=== PATIENT | female | born 1965 | race Caucasian/White ===

== ENCOUNTER 2021-03-25 20:06 | Emergency (ER) | payer OTHER, SELFPAY ==
[2021-03-25 20:07] VITALS: BP 116/80; PULSE 92; RESP 18; TEMP 38.1; O2SAT 96; BMI 19.8
--- NOTE | 2021-03-25 20:25 | ED.VIS.DYS ---
HPI History of Present Illness Chief Complaint: Cough Informant: patient Narrative Narrative: 55-year-old female presents the emergency department with cough and dyspnea with concerns for Covid. The patient states that she got sick about 8 days ago. She notes cough dyspnea with exertion nausea dry heaves body aches headache rhinorrhea. Patient did not know that she was running a fever. She denies any chronic medical conditions. She is a non-smoker. She reports that her is also ill. 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 She is unvaccinated against COVID-19 [facility] Medical History (Updated 03/25/21 @ 22:[address] Ramon Sandhu DO) Anxiety Kidney stone Home Medications albuterol sulfate [Ventolin HFA] 2 puff INHALATION Q4H PRN PRN #1 inhaler 03/25/21 [Rx Last Taken Unknown] alprazolam 0.25 mg PO DAILY 03/25/21 [History Last Taken Unknown] cholecalciferol (vitamin D3) [Vitamin D3] 25 mcg PO DAILY 03/25/21 [History Last Taken Unknown] citalopram 10 mg PO DAILY 03/25/21 [History Last Taken Unknown] dexamethasone 6 mg PO DAILY #14 tab 03/25/21 [Rx Last Taken Unknown] elderberry fruit [Elderberry] 200 mg PO DAILY 03/25/21 [History Last Taken Unknown] multivitamin 1 tab PO DAILY 03/25/21 [History Last Taken Unknown] ondansetron 4 mg PO Q8H PRN PRN #20 tab 03/25/21 [Rx Last Taken Unknown] Allergy/AdvReac Type Severity Reaction Status Date / Time buprenorphine [From Buprenex] Allergy Hives Verified 03/25/21 20:11 butorphanol [From Stadol] Allergy Hives Verified 03/25/21 20:11 hydromorphone [From Dilaudid] Allergy Hives Verified 03/25/21 20:11 morphine Allergy Hives Verified 03/25/21 20:10 Surgical History H/O parathyroidectomy Previous section Social History (Updated 03/25/21 @ 20:[address] Ramon Sandhu DO) Smoking Status: Never smoker substance use type: does not use ROS ROS ED Constitutional Constitutional ED: Reports chills and sweats; Denies weight loss Eyes Eyes: Denies change in vision or diplopia ENT ENT ED: Reports rhinorrhea and sore throat; Denies ear pain Cardiovascular Cardiovascular: Denies chest pain, orthopnea, palpitations or racing heartbeat Respiratory/Chest Respiratory/Chest: Reports cough, dyspnea and dyspnea on exertion; Denies orthopnea Gastrointestinal Gastrointestinal: Reports nausea and vomiting; Denies abdominal pain or diarrhea Genitourinary Genitourinary ED: Denies dysuria, hematuria or urinary frequency Musculoskeletal Musculoskeletal: Reports myalgias; Denies arthralgias Integumentary Denies abscess or rash Neurologic Neurologic: Reports headache(s); Denies weakness Psychiatric Psychiatric: Denies anxiety, depression, suicidal ideation or suicidal thoughts Endocrine Endocrinology: Denies polydipsia, polyphagia or polyuria Allergic/Immunologic Allergic/Immunologic ED: Denies mouth swelling, tongue swelling or urticaria EXAM Physical Exam Const Vital Signs: 03/25/21 20:07 03/25/21 21:10 03/25/21 22:29 Temperature 100.6 F H Temperature Source Temporal Pulse Rate 92 88 Respiratory Rate 18 16 Respiratory Effort Normal Respiratory Depth Normal Respiratory Pattern Normal Blood Pressure 116/80 112/76 Blood Pressure Mean 92 88 Pulse Ox 96 96 Oxygen Delivery Method Room Air Room Air Positive well nourished and well developed General Appearance ED: well developed HEENT Reports normocephalic, head/scalp atraumatic and moist mucous membranes Eyes PERRL and EOMs intact bilaterally Neck no lymphadenopathy, supple and no JVD Resp normal respiratory effort and clear to auscultation bilaterally Cardio regular rate, regular rhythm and no murmurs GI normal to inspection, nondistended, normoactive bowel sounds and non-tender Palpation: soft Back/Spine no CVA tenderness and normal ROM Extremity normal to inspection General Extremety ED: Negative for edema General Extremity: Negative for edema Neuro oriented x3 and CN's II-XII intact bilaterally Sensorium / Orientation: alert Motor Exam: strength 5/5 throughout Psych mental status grossly normal Mood & Affect: Negative for depressed or tearful Skin no rashes or lesions noted and no wounds MDM MDM MDM Narrative Medical decision making narrative: Basic blood work is negative. My interpretation of the chest x-ray is no acute process. Patient is not having any labored breathing. She is not requiring supplemental oxygen. I would consider her a well Covid patient. Should be discharged home with dexamethasone and albuterol and some Zofran. Return if worsening or concerns Lab Data Attestation: I reviewed the patient's lab results. Labs: Laboratory Results - last 24 hr 03/25/21 03/25/21 21:06 21:06 WBC 4.7 RBC 4.57 Hgb 14.1 Hct 42.4 MCV 92.8 MCH 30.9 MCHC 33.3 RDW Std Deviation 42.9 RDW Coeff of Sebastian 12.5 Plt Count 160 MPV 11.2 Immature Gran % (Auto) 0.400 Neut % (Auto) 64.5 Lymph % (Auto) 25.0 Radford % (Auto) 9.7 Eos % (Auto) 0.0 Baso % (Auto) 0.4 Absolute Neuts (auto) 3.0 Absolute Lymphs (auto) 1.18 Nucleated RBC % 0 Sodium 139 Potassium 3.7 Chloride 104 Carbon Dioxide 32.0 Anion Gap 3 L BUN 12 Creatinine 0.74 Estim Creat Clear Calc 69.70 Est GFR (MDRD) Af Amer 105 Est GFR (MDRD) Non-Af 87 BUN/Creatinine Ratio 16.2 Glucose 111 H Calcium 8.6 Radiography Diagnostic Testing: Radiology Impression Chest X-Ray 03/25/21 21:20 IMPRESSION: No acute process Electronically Signed: Igor Farooq MD at 22:11 EDT , Service support , Discharge Plan Triage Chief Complaint: Cough ED Provider: Ramon Sandhu Dx/Rx/DC Orders Clinical Impression: COVID-19 Instructions: Coronavirus Disease 2019 (COVID-19): Caring for Yourself or Others Prescriptions: New dexamethasone 6 MG tablet 6 mg PO DAILY Qty: 14 RF: 0 albuterol sulfate [Ventolin HFA] 1 INHALER inhaler 2 puff inhalation Q4H PRN PRN (Reason: Wheezing) Qty: 1 RF: 0 ondansetron [ondansetron] 4 MG tablet 4 mg PO Q8H PRN PRN (Reason: Nausea) Qty: 20 RF: 0 No Action multivitamin Tablet 1 tab PO DAILY RF: 0 citalopram 10 mg tablet 10 mg PO DAILY RF: 0 alprazolam 0.25 mg tablet 0.25 mg PO DAILY RF: 0 cholecalciferol (vitamin D3) [Vitamin D3] 25 mcg (1,000 unit) Capsule 25 mcg PO DAILY RF: 0 Elderberry 200 mg Capsule 200 mg PO DAILY RF: 0 Primary Care Provider: Qing Landrum Referrals: Qing Landrum PA [Primary Care Provider] -
[2021-03-25] MEDS: Acetaminophen 500 MG Tablet 1000 MG PO (20:54)
[2021-03-25 21:19] LABS: Absolute Lymphocyte Count 1.18 X10^3/uL (0.83-4.51); Basophil# 0.02 X10^3/uL; Basophil% 0.4 % (0-1); Hematocrit 42.4 % (37-47); Hemoglobin 14.1 g/dL (12.0-15.0); Lymphocyte # 1.18 X10^3/ul (0.83-4.51); Mean Corp Hgb Conc 33.3 g/dL (32-36); Mean Corpuscular Hgb 30.9 pg (27.0-32.0); Mean Corpuscular Volume 92.8 fL (81-99); Mean Platelet Vol. 11.2 fl (6.2-12.0); Monocyte# 0.46 X10^3/uL; Monocyte% 9.7 % (0-10); NRBC Flagged by Analyzer 0 % (0-5); Neutrophil # 3.04 X10^3/uL (2.7-7.7); Neutrophil % 64.5 % (47-70); Platelet Count 160 K/mm3 (150-450); RBC Distribution Width CV 12.5 % (11.6-14.6); RBC Distribution Width SD 42.9 fl (35.1-43.9); Red Blood Count 4.57 M/mm3 (4.2-5.4); White Blood Count 4.7 K/mm3 (4.4-11.0)
--- NOTE | 2021-03-25 21:20 | RAD_ITS ---
STUDY: X-RAY CHEST REASON FOR EXAM: Female, 55 years old. cough and sob x 1 week TECHNIQUE: Single AP portable view of the chest. COMPARISON: None. FINDINGS: The lungs are clear and expanded. There is no demonstrated pleural abnormality. Normal size heart. Normal mediastinum and gayle. Normal visualized pulmonary arteries. There is atherosclerotic calcification of the aortic arch with tortuosity. Normal visualized thoracic spine. Normal visualized ribs, clavicles, and shoulders. There is no demonstrated abnormality of the visualized soft tissue structures of the upper abdomen. RAD/Chest 1 View (Portable) IMPRESSION: No acute process Electronically Signed: Igor Farooq MD at 22:11 EDT , Service support ,
[2021-03-25 21:36] LABS: Anion Gap 3 (5-15); BUN 12 mg/dL (7-18); BUN/Creat Ratio 16.2 RATIO (10-20); Calcium,Total 8.6 mg/dL (8.5-10.1); Chloride 104 mmol/L (98-107); Creatinine, Serum 0.74 mg/dL (0.55-1.02); EST Glomerular Filtration Rate 87 mL/min (>60); Est Glom Filt Rate - Afr Amer 105 mL/min (>60); Glucose 111 mg/dL (74-106); Potassium 3.7 mmol/L (3.5-5.1); Sodium Level 139 mmol/L (136-145)
[2021-03-25 22:29] VITALS: BP 112/76; PULSE 88; RESP 16; O2SAT 96
[2021-03-25] MEDS: dexAMETHasone 4 MG Tablet 6 MG PO (22:59)
[2021-03-25 23:01] VITALS: BP 110/74; PULSE 76; RESP 18; TEMP 36.8; O2SAT 95
== END 2021-03-25 23:03 | disposition home or self-care (01) ==
LOC: ED 20:30
PROVIDERS: Emergency Provider Emergency Medicine; PCP Physician Assistant
DX: U07.1 COVID-19 (principal); Z79.899 Other long term (current) drug therapy
CPT/HCPCS: 71045; 80048; 85025; 87426; 87804; 99285; A4216

== ENCOUNTER 2023-10-23 17:00 | Outpatient (RCR) | payer OTHER, SELFPAY ==
--- NOTE | 2023-10-06 17:03 | HP.PTEVAL_ITS ---
Patient's Visit Information Visit Information Visit Information: SERA MANSFIELD is a 57 year old F referred to Physical Therapy by Dr. Kee Francois MD with a diagnosis of ADHESIVE CAPSULITIS OF R SHOULDER. Date of Evaluation: 10/06/23 Physical Therapist: Mihaela Watkins PT, Cert MDT Visit Plan Frequency: 2-5 TIMES A WK Duration: 4-6 Weeks Plan: CLARK UE ROM, STRETCHING AND STRENGTHENING. MH, US OR CP TREATMENTS NEEDED. CLARK SHLD JOINT MOBILIZATION. POSTURE CORRECTION/STRENGTHENING. 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 PLANNING TO GO BACK TO WORK MONDAY. Disability: NO Present symptoms: THE NERVE BLOCK IS LETTING UP. FEELING TINGLING IN R HAND. FEELING R NECK, SHLD AND ARM SORENESS AND TENDERNESS. FEELING A LITTLE SORENESS IN BICEP AREA ON THE LEFT. CLARK BICEP TINGLING - BETTER SINCE SURGERY. Present since: MAR 2023 Pain Scale: Worst - 5/10 Least - 2/10 Currently: 5/10 Commenced as a result of: NO APPARENT REASON Symptoms at onset: L SHLD BLADE PAIN AND TIGHTNESS Worse: REACHING Better: MOVING SLOWLY AND DELIBERATELY Disturbed sleep: YES Previous history/Previous treatment: CHIROPRACTIC EVERY 2-3 WKS REGULARYLY PRIOR TO THE ONSET OF THIS IN MAR 2023 SO CONTINUED WITH CHIROPRACTIC WITH US MARCY AND E-STIM THEN R SHLD STARTED IN JUN 2023. SAW PCP DR. BROOKS IN [place] FOR FOLLOW IN JUN AND DX WITH POLYMYALGIA RHEUMATICA. CONSULT WITH AGRICULTURAL EXTENSION EDUCATOR EARLIER THIS MONTH - REFERRED TO ORTHO. CONSULT WITH DR. FRANCOIS RIGHT AWAY, DX'D WITH CLARK FROZEN SHLD'S AND MANIPULATION SCHEDULED. REASON FOR DX UNKNOWN. This episode: CLARK SHLD MANIPULATIONS UNDER ANESTHESIA. NERVE BLOCK R. Dizziness: NO Tinnitus: NO Nausea: YES Shortness of Breath: YES - GETTING BETTER Difficulty Swollowing: NO Gait: NORMAL Accidents: NO Unexplained weight loss: NO Imaging: PATIENT RECALLS HAVING X-RAYS OF HANDS AND SHLD'S BUT NOT NECK SINCE ONSET OF L SHLD PAIN IN MAR 2023. MOST RECENT X-RAYS WERE FROM [facility]. PATIENT IS UNSURE OF RESULTS OTHER THAN BEING TOLD THERE WERE NO SIGNS OF ARTHRITIS. PMH/Recent major surgery: ANXIETY, PARATHYROIDECTOMY 1989. H/O KIDNEY STONES. OTHER: PRIOR TO ONSET IN MAR 2023 PATIENT REPORTS UNLIMITED UE FUNCTION. PRIOR TO SURGERY PATIENT REPORTS DIFFICULTY HOOKING HER BRA, REACHING UP TO GET THINGS OUT OF THE CUPBOARD, PAINTING, GETTING COAT ON, REACHING UP TO WRITE ON SMART BOARD AT WORK, DOING HAIR, HANGING CLOTHES UP, ETC. PATIENT REPORTS TINGLING IN CLARK BICEPS PRIOR TO SURGERY. Objective Objective: Sitting Posture/Standing Posture: POOR. SLOUCHED. FH. RSH'S. R SHL LEVEL LOWER THAN L. NO TORTICOLLIS. Active Correction of posture: BETTER. ABLE TO MOSTLY CORRECT BUT DOES NOT MAINTAIN. Other Observations: INDEP GAIT AND TRANSFERS. GOOD HISTORIAN. PLEASANT AND COOPERATIVE TO WORK WITH. Sensory deficit: CLARK UE LIGHT TOUCH SENSATION GROSSLY INTACT AND SYMMETRICAL ROM deficit: AROM IN STANDING: R SHLD FLEX 138, L 140. EXT R 43, L 52. ABD R 92, L 76. SUPINE IR R 32, L 26. ER R 28, L 36 SUPINE PROM: R SHLD FLEX 168, L 145. ABD R 148, L 130. IR R 63, L 62. ER R 71, L 71. (ROTATION MEASURED WITH 80 DEG ABD). Motor deficit: R SHLD 3-/5, ELBOW 4-/5, HAND 4/5. L SHLD 2+/5, ELBOW 3+/5, HAND 4/5. Reflexes: UNABLE TO ELICIT CLARK UE DTR'S. Cervical Mvmt Loss: Flex: NIL Pro: NIL Ext: MOD Ret: EDITH RSB: MOD LSB: MOD R Rot: MIN L Rot: MIN PATIENT HAS TIGHTNESS WITH CERVICAL ROM TESTING BUT DENIES PAIN WITH TESTING. Postural strength: FAIR Palpation: MILD CLARK SHLD TENDERNESS L>R. SHE HAS GENERALIZED TENDERNESS IN THE UPPER TRAP AND SHLD REGIONS. TREATMENT: CLARK SHLD JOINT MOBILIZATION, A/AA/PROM ALL PLANES. HEP INSTRUCTION FOR A/AA/PROM ALL PLANES AND HEAT AND COLD NEEDED FOR PAIN AND inflammation CONTROL. PATIENT TOLERATED ALL INTERVENTIONS WELL AND HAD NEAR FULL ROM OF CLARK UE'S ALL PLANES BY END OF SESSION. SHE DEMONSTRATED AND COMMUNICATED A GOOD UNDERSANDING OF ALL INSTRUCTIONS AFTER GIVEN. Balance/Special Test Scores Quick DASH Score: 45.0000 Goals Goal 1:: DECREASE C/O CLARK SHLD PAIN AND R NECK PAIN BY AT LEAST 80% TO EASE ADL AND SLEEP FUNCTION. Goal Time Frame: 4-6 Weeks Goal 2:: RESTORE FULL ROM OF CLARK UE'S TO HELP PATIENT RETURN TO PLOF Goal Time Frame: 4-6 Weeks Goal 3:: RESTORE FULL STRENGTH AND FUNCTION OF CLARK UE'S TO ASSIST PATIENT IN RETURN TO PLOF Goal Time Frame: 4-6 Weeks Goal 4:: INDEP HEP Goal Time Frame: 4-6 Weeks Rehabilitation Potential Physical Therapy Diagnosis: THIS PATIENT PRESENTS TO PT S/P CLARK SHLD MANIPULATION UNDER ANESTHESIA YESTERDAY 10/05/23. SHE PRESENTS WITH PAIN AND HYPOMOBILITY OF CLARK SHLD'S. Rehabilitation Potential: Excellent Anticipated Interventions Patient/Client Instruction: Educate patient on: Condition, Plan of Care and Risk Factors For the Purpose of:: To improve self management Therapeutic Exercise to Include: Strength training, Body mechanics, Postural training, Flexibilty training, Neuromotor development, Passive ROM, Active ROM and Scapular Strength/Stabilization For the Purpose of:: To decrease pain, To increase ROM, To improve muscle performance and motor function, To increase tolerance to activity/condition/position, To improve ability of physical actions for home/community/work/leisure, To decrease soft tissue restriction and To increase flexibility/ROM Manual Therapy Techniques to Include: Mobilization For the Purpose of:: To decrease pain and To increase ROM TENS: Yes IF ES: Yes Cryotherapy (ice pack, ice massage): Yes Thermo therapy (hot pack): Yes Ultrasound (thermal/non thermal): Yes For the Purpose of:: To decrease pain, To decrease swelling/inflammation and To improve nutrient delivery to tissue Text: Thank you for the opportunity to evaluate your patient. For Medicare and Medicare HMO plans, please review the plan of care and approve it. It will need to be FAXED BACK to us at [phone] for Medicare purposes. For Medicare only, by signing this I certify the plan of care. Please let me know if there are questions or concerns regarding this plan of care. Physician Nelly alonzo: Date:
--- NOTE | 2023-10-24 08:51 | HP.PTDCSUM ---
Discharge Summary D/C summary: It has been my pleasure to treat SERA MANSFIELD referred by Dr. Kee Gavin MD, with the diagnosis of ADHESIVE CAPSULITIS OF R SHOULDER for a total of 10 visit(s). Discharge Date: 10/23/23 Please see the following information for a summary of their discharge status. Subjective Subjective: Pt reports doing very well, is able to fasten her bra and has no limitations. Saw surgeon last week and gave no limitations, up to PT when she can be d/c. Pain R SHLDR: Pain Intensity (Out of 10): 0 L SHOULDER: Pain Intensity (Out of 10): 0 Overall Improvement % Improvement: 100 Objective Objective/Function: ROM: full ROM clark with no pain or compensation, full cervical ROM MMT: 5/5 strength, 4+/5 clark in empty can position no pain OBSERVATION: good scapulohumeral rhythm, no tightness or tenderness SWING: no pain with or without resistance (pt wanting to get back to pickleball) Pt has no pain or limitations, no longer needs skilled PT services due to high level of function Goals Goal 1:: DECREASE C/O CLARK SHLD PAIN AND R NECK PAIN BY AT LEAST 80% TO EASE ADL AND SLEEP FUNCTION. Goal Progress: Goal Met Goal 2:: RESTORE FULL ROM OF CLARK UE'S TO HELP PATIENT RETURN TO PLOF Goal Progress: Goal Met Goal 3:: RESTORE FULL STRENGTH AND FUNCTION OF CLARK UE'S TO ASSIST PATIENT IN RETURN TO PLOF Goal Progress: Goal Met Goal 4:: INDEP HEP Goal Progress: Goal Met Plan Plan: Pt to d/c home with HEP, no longer appropriate for PT services d/t all goals met and no limitations D/C Information Discharge Comments: Pt has met all her goals and is appropriate to d/c home with HEP d/c sentence: If there are questions or concerns regarding this patient's physical therapy, please feel free to call me at [phone]. Thank you for the referral of this patient. Sincerely, Sergey Dorsey Sipos, DPT Balance/Gait/Functional tests Balance/Special Test Scores Quick DASH Score: 0 Improvement % Improvement: 100
== END 2023-10-23 19:00 | disposition home or self-care (01) ==
LOC: PT 17:00
PROVIDERS: PCP Physician Assistant; Referring Provider Orthopaedic Surgery; Visit Provider Orthopaedic Surgery
DX: M75.01 Adhesive capsulitis of right shoulder (principal)
CPT/HCPCS: 97110; 97140; 97162; 97530

== ENCOUNTER 2024-04-18 07:56 | Day surgery (SDC) | payer OTHER, SELFPAY ==
--- NOTE | 2024-04-05 14:00 | PCM.HP.BLA ---
History and Physical Date of Admission: 04/18/24 HPI: The patient is a 58 year old female presenting for pre-operative visit. She is scheduled for hysteroscopy D&C and polyp resection, for postmenopausal bleeding, thickened endometrium suspected endometrial polyp on 04/18/24. Procedure discussed along with risks, benefits and complications. Other alternatives discussed for management. Consent form signed? Yes. PAST MEDICAL HISTORY PAST MEDICAL HISTORY 03/12/2024: Abnormal endometrial ultrasound No date: Allergic rhinitis, cause unspecified Comment: Allergic rhinitis No date: Cervical high risk HPV (human papillomavirus) test positive Comment: 202003/12/2024: Endometrial thickening on ultrasound No date: Hypoparathyroidism (HCC) 03/12/2024: Intramural uterine fibroid No date: Personal history of urinary calculi PAST SURGICAL HISTORY PAST SURGICAL HISTORY 1991, , : DELIVERY ONLY Comment: , low cervical 12/17/2017: COLONOSCOPY FLX DX W/COLLJ SPEC WHEN PFRMD Comment: Colonoscopy - [facility] 10 yr interval No date: KIDNEY SURGERY HX Comment: kidney stones x5 No date: LIG/TRNSXJ FLP TUBE ABDL/VAG APPR UNI/BI Comment: Tubal ligation/bilateral 1989: PARATHYROID Comment: PARATHYROIDECTOMY 10/05/2023: PAST SURGICAL HISTORY OF Comment: bilateral shoulder surgery CURRENT MEDICATIONS Current Outpatient Medications Medication Sig Dispense Refill ? OTC NUTRITIONAL SUPPLEMENT 1 capsule once daily. Daily Defence + vitamin ? Lactobac no.41/Bifidobact no.7 (PROBIOTIC-10 ORAL) Take 40 Billion CFU by mouth once daily. ? elderberry fruit (ELDERBERRY ORAL) Take 1 tablet by mouth once daily. ? citalopram hydrobromide (CELEXA) 10 mg tablet Take 10 mg by mouth once daily. 1 ? ALPRAZolam (XANAX) 0.25 mg tablet Take 0.25 mg by mouth once daily. 1 ? MULTIVITAMIN ORAL Take 1 tablet by mouth once daily. No current facility-administered medications for this visit. ALLERGIES: Buprenex [Buprenorphine Hcl], Dilaudid [Hydromorphone (Bulk)], Morphine, and Stadol [Butorphanol Tartrate] PERSONAL HISTORY: SOCIAL HISTORY Social History Tobacco Use ? Smoking status: Never ? Smokeless tobacco: Never Vaping Use ? Vaping status: Never Used Substance Use Topics ? Alcohol use: Not Currently ? Drug use: Never FAMILY HISTORY: FAMILY HISTORY FAMILY HISTORY Problem Relation Age of Onset ? Fibromyalgia Mother ? Hyperlipidemia Mother ? other (Osteoarthritis) Mother ? Heart Father ? Lipids Father High Cholesterol ? Prostate Cancer Father ? Cancer Father skin ? Heart Attack Father ? other (Renal Stones) Father ? other (rheumatoid arthritis) Father ? No Known Problems Sister ? No Known Problems Sister ? Cancer Brother Testicular - Dx at 36 ? Leukemia Brother 2017 ? Cancer Maternal Grandmother Skin ? Lipids Maternal Grandmother High Cholesterol ? Heart Maternal Grandfather ? Hypertension Maternal Grandfather ? Diabetes Maternal Grandfather ? other (Other) Maternal Grandfather Suicide ? No Known Problems Daughter ? No Known Problems Daughter ? No Known Problems Daughter ? other (OVARIAN CANCER) Maternal Aunt DX at 29 ? Cancer Paternal Uncle Pancreatic ? Breast Cancer Other MATERNAL GREAT AUNT - Dx at 70 REVIEW OF SYMPTOMS: GENERAL: denies fevers or chills ENDOCRINOLOGY: has not been on steroids Cardiology : denies palpitations or chest pain Respiratory: denies SOB or cough Hematology: denies history of prolonged bleeding or easy bruising or VTE Allergy: Denies history of personal or family history of allergy to anesthesia PHYSICAL EXAMINATION: VITALS: Blood pressure 94/58, pulse 96, height 158.8 cm (5' 2.5), weight 49 kg (108 lb), last menstrual period 06/27/2022. GENERAL: The patient is well nourished, well hydrated in no acute distress. , The patient is oriented to time, place, and person. NECK: Supple. No lynphadenopathy, normal thyroid, no thyromegaly. LUNGS: Clear to auscultation bilaterally. no wheezes, rhonchi or rales HEART: Regular rate and rhythm, Normal heart sounds, and No murmurs or gallops Pelvic ultrasound 03/12/2024 Indication Postmenopausal bleeding- spotting Impression The uterus is anteflexed and measures 99 mm x 44 mm x 68 mm. The myometrium is heterogeneous, and asymmetrically thickened suggestive of adenomyosis. The endometrium is thickened, heterogenous and has cystic areas measuring 5.6 mm. Endometrial pathology cannot be excluded. There is a left lateral posterior wall intramural fibroid that measures 10 mm x 13 mm x 7 mm. The right ovary measures 14 mm x 24 mm x 12 mm. There is a right simple paraovarian/paratubal cyst that measures 8 mm x 8 mm x 7 mm. The left ovary measures 27 mm x 18 mm x 13 mm. There is no free fluid visualized. This is a trans abdominal ultrasound only. IMPRESSION: Postmenopausal bleeding, but she would likely endometrial polyp noted on pelvic ultrasound and thickened endometrium as her PLAN: The risks/benefits/alternatives and personal involved for the planned hysteroscopy D&C and possible polyp resection were reviewed with the patient. Her questions were answered to her satisfaction and she desires to proceed. Consent was signed. I reviewed with her postop instructions and expectations. History of unsatisfactory Pap smear in the office last month. Repeat Pap smear with HPV testing day of surgery. I have reviewed and updated past medical and surgical history, medications and allergies This H&P completed in my office on 04/03/24 Assessment & Plan Assessment/Plan (1) PMB (postmenopausal bleeding): (2) Thickened endometrium:
[2024-04-18] VITALS (7 sets, daily range): BP systolic 94–111; BP diastolic 51–59; PULSE 59–67; RESP 16; TEMP 36.1–36.7; O2SAT 96–100; BMI 20.2
--- NOTE | 2024-04-18 | EMB_PTH ---
PATIENT: SERA MANSFIELD LOC: [facility] [place] U#:[id number] AGE/SX: 58/F ROOM: RE04/18/[address]: Dr. Shanthi Lewis MD : 1965 BED: DIS: 04/18/2024 SPEC #[id number] RECD: 04/18/24 13:42 STATUS: SUNITA REJoselito #: [id number] ELENA: 04/18/24 00:[address]: Shanthi Lewis DEPT: SURGICAL PATHOLOGY RECD BY: Nash Tripathi ENTERED: 04/18/24 13:43 SP TYPE: ENDOM BX/C OT DR: TIFFANIE Oneill Tissues: Endometrium, NOS Procedures: Surgery Specimen Level IV HEADER OPERATION: Hysteroscopy, D&C PRE-OP DIAGNOSIS: Post menopausal bleeding TISSUE SUBMITTED: Endometrial curettings MICROSCOPIC DIAGNOSIS Endometrial curettings: A polypoid fragment of endometrial tissue with disordered proliferative endometrium, may represent a fragment of benign endometrial polyp. Scant fragments of benign endometrial epithelium and superficial benign endometrial tissue. Fragments of benign ectocervical, endocervical epithelium and mucoid tissue. See comment. 04/19/2024 COMMENT The specimen predominantly consists of mucoid tissue. Clinical correlation and appropriate follow up are necessary. MICROSCOPIC DESCRIPTION Slides are reviewed. GROSS DESCRIPTION Received in fixative is one container labeled with the patient's name and designated Endometrial curettings. The specimen consists of multiple irregular fragments of pink-willams hemorrhagic mucoid tissue that in aggregate measure 5.0 x 3.0 x 0.3 cm. The specimen is totally submitted in two cassettes. 04/18/2024 TC:5 CPT:91353
--- NOTE | 2024-04-18 08:12 | PCM.PRE.AN2 ---
ASA Classification* ASA Classification ASA Classification: 2 Assessment & Plan Anesthesia* Anesthesia Assessment Anesthesia Assessment: Discussed sedation and/or anesthesia options, risks, benefits, and alternatives with patient/parents/legal guardian/POA. Questions invited. The patient/parents/legal guardian/POA seems to understand and agrees to proceed with anesthesia plan. Reviewed the physical assessment, medical history, allergy history and patient home medications list prior to surgery/procedure/anesthetic and documented any changes. Performed airway and anesthesia risk assessments. Anesthesia Type Anesthesia Type: MAC (see written pre anesthesia record for full assessment) Anesthesia Focused Assessment* Airway Assessment Mouth opens: >3 cm Mallampati Score: II Focused Labs Anesthesia Preop lab: CBC WBC 4.7 K/mm3 (4.4-11.0) 03/25/21 21:06 RBC 4.57 M/mm3 (4.2-5.4) 03/25/21 21:06 Hgb 14.1 g/dL (12.0-15.0) 03/25/21 21:06 Hct 42.4 % (37-47) 03/25/21 21:06 Plt Count 160 K/mm3 (150-450) 03/25/21 21:06 CHEMISTRY Potassium 3.7 mmol/L (3.5-5.1) 03/25/21 21:06 Sodium 139 mmol/L (136-145) 03/25/21 21:06 BUN 12 mg/dL (7-18) 03/25/21 21:06 Creatinine 0.74 mg/dL (0.55-1.02) 03/25/21 21:06 Glucose 111 mg/dL (74-106) H 03/25/21 21:06 COAG Pre-Assessment Diagnosis/Proposed Procedure Planned Operative Procedure(s): HYSTEROSCOPY D&C WITH PAP SMEAR AND POSS POLYP RESECTION Anesthesia History 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 When Was Last Pacemaker Check QUESTION #4 FULL TEXT: You/Your Family Experience fever (hyperthermia) with Anesthesia Last Oral Intake Last Oral intake: Last Oral Intake NPO since Meds taken in AM with sips of water? 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 Female Yes 04/11/24 10:04 HX of Motion Sickness No 04/11/24 10:04 HX of N/V After Surgery No 04/11/24 10:04 Non-Smoker Yes 04/11/24 10:04 Duration of Surgery greater No 04/11/24 10:04 than 60 minutes Number of Risk Factors 2 04/11/24 10:04 PONV Score Moderate Risk 04/11/24 10:04 Height & Weight Height & Weight: Anesthesia: Height & Weight Height 5 ft 3 in 03/25/21 20:07 Respiratory Assessment Respiratory Assessment - security system technician: Respiratory Tract Infection Hx - security system technician Hx Respiratory Tract Infection No 04/11/24 10:04 STOP Sleep Apnea STOP Sleep Apnea - security system technician: STOP Sleep Apnea - security system technician Hx Hypertension No 04/11/24 10:04 Hx Sleep Apnea No 04/11/24 10:04 CPAP BIPAP Do you snore loudly (louder No 04/11/24 10:04 than talking or can be heard Do you often feel tired/ No 04/11/24 10:04 fatigued/ sleepy during daytime? Has anyone observed you stop No 04/11/24 10:04 breathing during sleep? STOP Results Negative 04/11/24 10:04 QUESTION #5 FULL TEXT : Do you snore loudly (louder than talking or can be heard through closed doors)? 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 Specify any problems Hx of Preganancy in last 3 No 04/11/24 10:04 Months Nurse Filling Out Transfusion DSCHRIBER 04/11/24 10:04 & Questions: Date: 04/11/24 04/11/24 10:04 Time: 10:05 04/11/24 10:04 Patient unable to answer at this time (ie. confused, unrespo /Reproduction History /Reproductive History - security system technician: /Reproductive Hx- security system technician Hx Now No 04/11/24 10:04 Gestational Age (in weeks): EDC: Hx Hx Para Hx Section SAB No 04/11/24 10:04 Active Medications Active Medications: Current Medications Generic Name Dose Route Start Last Admin Trade Name Freq PRN Reason Stop Dose Admin Acetaminophen 1,000 mg 04/18/24 09:35 Acetaminophen 500 Mg Tablet PO 04/18/24 09:36 PREOP ONE Lactated Ringer's 1,000 mls @ 15 mls/hr 04/18/24 08:15 IV .Q48H LEIGHTON Ketorolac Tromethamine 30 mg 04/18/24 09:35 Ketorolac 30 Mg/Ml Syringe IV 04/18/24 09:36 PREOP ONE PFSH Medical History Wears contact lenses Post-menopausal Restless legs Leg cramps Non-smoker Anxiety Home Medications ?Medication ?Instructions ?Recorded ?Last Taken ?Type citalopram 10 mg tablet 10 mg PO DAILY 03/25/21 Unknown History elderberry fruit 200 mg capsule 200 mg PO DAILY 03/25/21 Unknown History multivitamin 1 tab PO DAILY 03/25/21 Unknown History lactobacillus combination no.4 3 3,000 mmu cells PO DAILY 04/11/24 Unknown History billion cell capsule (Probiotic) loratadine 10 mg tablet (Claritin) 10 mg PO DAILY 04/11/24 Unknown History Allergy/AdvReac Type Severity Reaction Status Date / Time buprenorphine (From Buprenex) Allergy Hives Verified 04/11/24 10:01 butorphanol (From Stadol) Allergy Hives Verified 04/11/24 10:01 hydromorphone (From Dilaudid) Allergy Hives Verified 04/11/24 10:01 morphine Allergy Hives Verified 04/11/24 10:01 Surgical History Hx of colonoscopy Hx of shoulder surgery Hx of lithotripsy Previous section H/O parathyroidectomy Social History Smoking Status: Never smoker substance use type: does not use Review of Systems (Anesthesia) ROS Narrative System reviewed and no additional complaints, except as documented.
[2024-04-18] MEDS: Lactated Ringers 1,000 ML 15 ML IV (08:42)
[2024-04-18] MEDS: Ketorolac 30 MG/ML Syringe IV (08:43)
[2024-04-18] MEDS: Acetaminophen 500 MG Tablet 1000 MG PO (08:43)
[2024-04-18] MEDS: Lidocaine 1% /Epi 1:100 (20ml) 20 ML Vial (09:59)
[2024-04-18] MEDS: 0.9% Normal Saline (Pres. free 10 ML Vial (10:05)
[2024-04-18] MEDS: Vasopressin 20 UNITS/ML Vial (10:05)
--- NOTE | 2024-04-18 10:23 | PCM.DC ---
Discharge Instructions Diet Discharge Diet: No restrictions Activity May resume sexual activity in: 1 week Lifting Restrictions: none Dressing / Incision Call your doctor if your incision/area has: Sudden Increased Bleeding and Foul Smelling Discharge Call your doctor if you observe: Fever of 101 or Higher and Using more than 1 pad per hour (for 2 hrs in a row) Follow Up Care Please Follow Up With: Shanthi Lewis MD When: You do not need a postop appointment. Send a [place] message or call for any questions. We will contact you next week with your pathology. Test Results: Test results from this visit will be discussed in further detail at your follow-up appointment, if applicable. Discharge Plan Admission Primary Reason for Your Visit: Hysteroscopy D&C Attending Provider: Shanthi Lewis Primary Care Provider: Qing Landrum Instructions Print Language: [place] Discharge Orders/Prescriptions Prescriptions: No Action multivitamin Tablet 1 tab PO DAILY citalopram 10 mg tablet 10 mg PO DAILY Elderberry 200 mg Capsule 200 mg PO DAILY Probiotic 3 billion cell capsule 3,000 mmu cells PO DAILY Rx Instructions: administer with a meal loratadine [Claritin] 10 mg tablet 10 mg PO DAILY Referrals / Follow Up: Qing Landrum PA [Primary Care Provider] - Disposition Disposition (needs filled in before D/C Order can be placed): Home, Self Care
--- NOTE | 2024-04-18 10:29 | OP.PCM_ITS ---
Problems Associated Problem List Diagnoses (1) Thickened endometrium: (2) PMB (postmenopausal bleeding): Report of Operation Date of Procedure: 04/18/24 Pre-Operative Diagnosis: PMB. thickened endometrium Post-Operative Diagnosis: same Surgery/Procedure Performed:: Hysteroscopy D&C Surgeon: Shanthi Lewis packaging sales representative: None Type of Anesthesia: MAC/Supplemental/Local Anesthesiologist: Lamont Iverson Special Medications: none Specimen's removed: endometrial curettings Drains: same Estimated Blood Loss (mL): 10 Fluids Replaced: 800 Description of Procedure: The patient was taken to the OR where she was prepped and draped in dorsal lithotomy position. The weighted speculum was placed in the vagina and the anterior lip of the cervix was grasped with a single-tooth tenaculum. A paracervical block was administered with [1% lidocaine with 1-100,000 epinephrine solution]. I attempted to dilate the cervix but was unsuccessful. I then injected 10 cc of dilute vasopressin solution which was 10 units of vasopressin and 20 cc of injectable saline. After 5 minutes I was then able to dilate the cervix gently. We then switched to the 3.5 mm SlimLine hysteroscope and I was able to visualize the endometrial cavity. No discrete abnormalities were noted in the endometrium was thin. Therefore sharp curettage was done and the endometrial curettings were sent. There was some polypoid versus cervical mucus tissue that was removed during dilation and this was sent as well.. The hysteroscope was removed. T The instruments were removed from the vagina. The specimen was handed off and sent to pathology. All sponge and needle counts were correct. Vaginal sweep was performed by me. The patient was awakened and taken to the recovery room in stable condition. Calculated fluid deficit was 200 cc of normal saline Grafts/Implants Used: none Procedure Start Time: 09:41 Procedure Stop Time: 10:18 Complications none Admit VTE Documentation VTE Present on Admission: No VTE Mechan Device Prophylaxis: SCD's VTE Pharm Prophylaxis ordered?: No Reason prophylaxis not ordered:: Procedure Not Indicated
--- NOTE | 2024-04-18 11:21 | PCM.POSTANE2 ---
Anesthesia Postop Eval I Sum Anesthesia Postop Eval I Summary Anesthesia Postop Eval I Summary: Anesthesia Postop Eval I: Assessment Summary Airway patent Spontaneous unlabored respirations Mental status Awake 04/18/24 10:51 nausea No 04/18/24 10:51 Vomiting No 04/18/24 10:51 Anesthesia Postop Eval I: Fluid Summary Crystalloid volume administer (ml) Colloids volume administered ( ml) Blood Product volume administered (ml) Total IV fluid infused Anesthesia Postop Eval I: Summary Notes Anesthesia Complication Anesthesia Complication Comment: Post-operative progress note Anesthesia: Postop Eval II Evaluation Mental status: Awake and Calm Pain Level: 1 nausea: No Vomiting: No Complications Anesthesia Complication: No
--- NOTE | 2024-04-18 11:27 | PCM.POST.ANE ---
Anesthesia: Postop Eval I Current Vital Signs Temperature: 97 F Pulse Rate: 64 Blood Pressure: 96/51 Respiratory Rate: 16 Pulse Ox: 96 Oxygen Delivery Method: Room Air Assessment Airway patent: Yes Spontaneous unlabored respirations: Yes Mental status: Awake and Calm nausea: No Vomiting: No Anesthesia Complication: No Fluid Hydration Crystalloid volume administer (ml): 900 Total IV fluid infused: 900 Progress Note Anesthesia document: Postop Eval 1 completed: Yes
--- NOTE | 2024-04-18 11:28 | POSTOPAN2_ITS ---
Anesthesia Postop Eval I Sum Postop Eval Completion status Anesthesia document: Postop Eval 1 completed: Yes Anesthesia Postop Eval I Summary Anesthesia Postop Eval I Summary: Anesthesia Postop Eval I: Assessment Summary Airway patent Yes 04/18/24 11:28 BOARD OF EDUCATION [email or web address].[email or web address] Spontaneous unlabored Yes 04/18/24 11:28 BOARD OF EDUCATION SECRETARY.MDOT respirations Mental status Awake,Calm 04/18/24 11:28 BOARD OF EDUCATION SECRETARY.MDOT nausea No 04/18/24 11:28 BOARD OF EDUCATION SECRETARY.MDOT Vomiting No 04/18/24 11:28 BOARD OF EDUCATION SECRETARY.MDOT Anesthesia Postop Eval I: Fluid Summary Crystalloid volume administer 900 04/18/24 11:28 BOARD OF EDUCATION SECRETARY.MDOT (ml) Colloids volume administered ( ml) Blood Product volume administered (ml) Total IV fluid infused 900 04/18/24 11:28 BOARD OF EDUCATION SECRETARY.OT Anesthesia Postop Eval I: Summary Notes Anesthesia Complication No 04/18/24 11:28 BOARD OF EDUCATION SECRETARY.OT Anesthesia Complication Comment: Post-operative progress note Anesthesia: Postop Eval II Evaluation Mental status: Awake and Calm Pain Level: 0 nausea: No Vomiting: No Complications Anesthesia Complication: No
--- NOTE | 2024-04-18 11:28 | PCM.POSTANE2 ---
Anesthesia Postop Eval I Sum Postop Eval Completion status Anesthesia document: Postop Eval 1 completed: Yes Anesthesia Postop Eval I Summary Anesthesia Postop Eval I Summary: Anesthesia Postop Eval I: Assessment Summary Airway patent Yes 04/18/24 11:28 MOTION GRAPHICS DESIGNER.MDOT Spontaneous unlabored Yes 04/18/24 11:28 MOTION GRAPHICS DESIGNER.MDOT respirations Mental status Awake,Calm 04/18/24 11:28 MOTION GRAPHICS DESIGNER.MDOT nausea No 04/18/24 11:28 MOTION GRAPHICS DESIGNER.MDOT Vomiting No 04/18/24 11:28 MOTION GRAPHICS DESIGNER.MDOT Anesthesia Postop Eval I: Fluid Summary Crystalloid volume administer 900 04/18/24 11:28 MOTION GRAPHICS DESIGNER.MDOT (ml) Colloids volume administered ( ml) Blood Product volume administered (ml) Total IV fluid infused 900 04/18/24 11:28 MOTION GRAPHICS DESIGNER.OT Anesthesia Postop Eval I: Summary Notes Anesthesia Complication No 04/18/24 11:28 MOTION GRAPHICS DESIGNER.OT Anesthesia Complication Comment: Post-operative progress note Anesthesia: Postop Eval II Evaluation Mental status: Awake and Calm Pain Level: 0 nausea: No Vomiting: No Complications Anesthesia Complication: No
[2024-04-26 09:09] LABS: HPV APTIMA, High Risk Negative (Negative)
== END 2024-04-18 11:55 | disposition home or self-care (01) ==
LOC: SDC 07:57 → AC 07:59
PROVIDERS: PCP Physician Assistant; Referring Provider Obstetrics & Gynecology; Visit Provider Obstetrics & Gynecology
PROC: 0UB98ZZ Excision of Uterus, Via Natural or Artificial Opening Endoscopic (ICD-10-PCS; CPT 58558; principal; 2024-04-18 09:20)
DX: N95.0 Postmenopausal bleeding (principal); R93.89 Abnormal findings on diagnostic imaging of other specified body structures; F41.9 Anxiety disorder, unspecified; Z79.899 Other long term (current) drug therapy
CPT/HCPCS: 58558; 00952; 87624; 88175; 88305; J7120; G0145; J2405; J3490